=== PATIENT | female | born 1945 | race Caucasian/White ===

== ENCOUNTER 2017-12-11 08:13 | Outpatient (CLI) | payer MEDICARE, OTHER ==
[~2017-12-11 08:13] MED LIST: ATEN100T PO; HYDR12.5 PO; LOSA25TA96 PO; LOVA10TA56 PO
[2017-12-11 09:28] LABS: CLARITY,URINE SLIGHTLY CLOUDY (Clear); COLOR,URINE YELLOW (Yellow); GLUCOSE, URINE NEGATIVE (Neg); KETONES,URINE NEGATIVE (Neg); LEUKOCYTE ESTERASE ,URINE NEGATIVE (Neg); NITRITES, URINE NEGATIVE (Neg); OCCULT BLOOD,URINE NEGATIVE (Neg); PH,URINE 5.5 (4.8-8.0); PROTEIN,URINE NEGATIVE (Neg); UROBILINOGEN,URINE 0.2 E.U/dL (0.2-1.0)
[2017-12-11 09:32] LABS: INR 0.9 INR; PROTHROMBIN TIME 9.8 SECONDS (9.0-12.0)
[2017-12-11 09:33] LABS: UA COLLECTION TYPE VOIDED
[2017-12-11 09:35] LABS: WBC,URINE 0-4 /HPF (0-4)
[2017-12-11 09:36] LABS: RBC,URINE NONE SEEN /HPF (0-2)
[2017-12-11 09:37] LABS: BACTERIA,URINE FEW /HPF (Neg); HYALINE CASTS 0-3 /LPF (NEGATIVE); RENAL CELLS, URINE FEW /HPF; SQUAMOUS EPITHELIAL CELL,UR MANY /LPF (FEW)
[2017-12-11 09:40] LABS: BASOPHILS % (AUTO) 0.5 % (0-1); EOSINOPHILS # (AUTO) 0.4 X10'3 (0-0.9); EOSINOPHILS % (AUTO) 5.4 % (0-6); HEMOGLOBIN 13.5 g/dl (12.0-16.0); LYMPHOCYTES # (AUTO) 2.4 X10'3 (1.1-4.8); LYMPHOCYTES % (AUTO) 28.5 % (21-51); MEAN CORPUSCULAR HEMOGLOBIN 29.7 PG (27.0-31.0); MEAN CORPUSCULAR HGB CONC 34.6 % (33.0-36.5); MEAN CORPUSCULAR VOLUME 85.9 FL (78-98); MEAN PLATELET VOLUME 9.1 FL (7.4-10.4); MONOCYTES # (AUTO) 0.6 X10'3 (0-0.9); MONOCYTES % (AUTO) 7.3 % (2-12); NEUTROPHILS # (AUTO) 4.9 X10'3 (1.8-7.7); NEUTROPHILS % (AUTO) 58.3 % (42-75); PLATELET COUNT 217 X10'3 (140-440); RED BLOOD COUNT 4.55 X10'6 (4.20-5.60); RED CELL DISTRIBUTION WIDTH 15.3 % (11.5-14.5); WHITE BLOOD COUNT 8.3 X10'3 (4.5-11.0)
[2017-12-11 10:03] LABS: ALANINE AMINOTRANSFERASE 26 U/L (12-78); ALBUMIN 3.9 G/DL (3.4-5.0); ALKALINE PHOSPHATASE 69 IU/L (46-116); ANION GAP 7 (8-16); ASPARTATE AMINO TRANSFERASE 20 U/L (10-37); BILIRUBIN,TOTAL 0.5 MG/DL (0.1-1.0); BLOOD UREA NITROGEN 23 MG/DL (7-18); BUN/CREATININE RATIO 19.2 (6.6-38.0); CALCIUM 9.5 MG/DL (8.5-10.1); CHLORIDE 105 MMOL/L (99-107); GLUCOSE 117 MG/DL (70-104); POTASSIUM 3.6 MMOL/L (3.5-5.1); SODIUM 143 MMOL/L (135-145); TOTAL CARBON DIOXIDE 31.4 MMOL/L (24-32); TOTAL PROTEIN 7.8 G/DL (6.4-8.2); eGFR 44 ML/MIN
[2017-12-11 17:50] LABS: HEMOGLOBIN A1C 6.3 % (4.5-6.2)
== END 2017-12-11 23:59 | disposition home or self-care (01) ==
LOC: LAB 08:13
PROVIDERS: ATTEND Specialist
DX: Z01.818 Encounter for other preprocedural examination (principal); Z51.81 Encounter for therapeutic drug level monitoring; N39.0 Urinary tract infection, site not specified; I10 Essential (primary) hypertension
CPT/HCPCS: 36415; 80053; 81001; 83036; 85025; 85610; 87070

== ENCOUNTER 2017-12-25 05:45 | Inpatient (IN) | payer MEDICARE, OTHER ==
[2017-12-25] VITALS (18 sets, daily range): BP systolic 97–123; BP diastolic 47–78
[~2017-12-25] VITALS: Ht 154.9 cm; Wt 70.3 kg
[~2017-12-25 05:45] MED LIST changes: -ATEN100T PO; +DOCUMENT DATE & TIME OF BETA-BLOCKER PO ONE; +METO50TA17 PO; +acetaminophen 325mg tablet PO ONE; +cefazolin/dext.iso 2gm/50ml 50 ML IV ONE; +famotidine 20mg tablet PO ONE; +gabapentin 300mg capsule PO ONE; +oxyCODONE SR 10mg (sust. release) tab PO ONE; +ringers solution, lacted 1,000 ML IV SCH; +tranexamic acid inj. 1,000 MG in normal saline 100ml IV soln 90 ML IV ONE
[2017-12-25] MEDS ORDERED: LIDOcaine 1% (10mg/ml) 2ml vial ONE (06:09)
[2017-12-25] MEDS ORDERED: ROPIVAcaine 0.5% (5mg/ml) 30ml vial ONE (06:50)
[2017-12-25] MEDS ORDERED: bacitracin inj 150,000 UNIT in sodium chloride irrig. sol 3,000 ML IR ONE (07:00)
[2017-12-25] MEDS ORDERED: MORPHINE SULFATE/PF 0.5 MG/ML 10ML AMPUL ONE (07:23)
[2017-12-25] MEDS ORDERED: MIDAZolam 1mg/ml 10ml vial ONE (07:23)
[2017-12-25] MEDS ORDERED: epiNEPHrine 1 mg/ml inj ONE (07:42)
[2017-12-25] MEDS ORDERED: propofol inj 20 ML IV ONE (07:42)
[2017-12-25] MEDS ORDERED: cloNIDine hcl/PF 100mcg/ml inj EP ONE (08:09)
[2017-12-25] MEDS ORDERED: proCHLORperazine 10 MG/2 ml inj IV PRN (08:15)
[2017-12-25] MEDS ORDERED: morphine 2 MG/ML inj. syringe IV PRN ×2 (08:15)
[2017-12-25] MEDS ORDERED: acetaminophen 1,000mg/100ml IV 100 ML IV PRN (08:15)
[2017-12-25] MEDS ORDERED: ondansetron/PF 4mg/2ml inj IV PRN ×2 (08:15→09:45)
[2017-12-25] MEDS ORDERED: ringers solution, lacted 1,000 ML IV SCH (08:15)
[2017-12-25] MEDS ORDERED: meperidine/PF 50mg/ml syringe IV PRN ×3 (08:15)
[2017-12-25] MEDS ORDERED: ePHEDrine 50MG/ML INJ. ONE (09:29)
[2017-12-25] MEDS ORDERED: BUPIVAcaine/PF 2.5 mg/ml (0.25%) 30ml vial ONE (09:29)
[2017-12-25] MEDS ORDERED: dexamethasone sod phosphate 4mg/ml inj. ONE (09:29)
[2017-12-25] MEDS ORDERED: acetaminophen 325mg tablet PO PRN (09:45)
[2017-12-25] MEDS ORDERED: HYDROmorphone 1 mg/ml syringe IV PRN (09:45)
[2017-12-25] MEDS ORDERED: diphenhydrAMINE 25mg capsule PO PRN ×2 (09:45)
[2017-12-25] MEDS ORDERED: magnesium hydroxide 30ml (MOM) UD suspension PO PRN (09:45)
[2017-12-25] MEDS ORDERED: bisacodyl 10mg suppository rectal RC PRN (09:45)
[2017-12-25] MEDS ORDERED: HYDROmorphone inj. 0.5 MG/0.5 ML DISP.SYRIN IV PRN (10:04)
[2017-12-25] MEDS: gabapentin 300mg capsule PO SCH ×2 (12:50→20:03)
[2017-12-25] MEDS: potassium cl 20mEq in 1/2 NS 1,000 ML IV SCH ×2 (12:51→20:03)
[2017-12-25] MEDS: acetaminophen 325mg tablet PO SCH ×2 (14:00→20:04)
[2017-12-25] MEDS: metoprolol tartrate 50mg tablet PO SCH (16:43)
[2017-12-25] MEDS: cefazolin 1gm/NS 100mL 100 ML IV SCH (16:46)
[2017-12-25] MEDS: lactobacillus rhamnosus 10,000 MMU CELLS/CAPSULE PO SCH (17:21)
[2017-12-25] MEDS: atorvastatin 10mg tablet PO SCH (20:03)
[2017-12-25] MEDS: sennosides 8.6mg tablet PO SCH (20:04)
[2017-12-25] MEDS: celeCOXIB 100mg capsule PO SCH (20:05)
[2017-12-25] MEDS: ascorbic acid 500mg tablet PO SCH (20:05)
[2017-12-26] VITALS (8 sets, daily range): BP systolic 92–112; BP diastolic 38–60
[2017-12-26] MEDS: cefazolin 1gm/NS 100mL 100 ML IV SCH (01:14)
[2017-12-26] MEDS: acetaminophen 325mg tablet PO SCH ×4 (01:15→20:15)
[2017-12-26] MEDS: potassium cl 20mEq in 1/2 NS 1,000 ML IV SCH ×2 (04:28→20:14)
[2017-12-26] MEDS: oxyCODONE IR 5mg (immed. release) tablet PO PRN ×4 (05:04→22:48)
[2017-12-26 06:00] LABS: BASOPHILS % (AUTO) 0.2 % (0-1); EOSINOPHILS # (AUTO) 0.1 X10'3 (0-0.9); EOSINOPHILS % (AUTO) 1.1 % (0-6); HEMATOCRIT 31.2 % (35.0-45.0); HEMOGLOBIN 10.6 g/dl (12.0-16.0); LYMPHOCYTES # (AUTO) 1.5 X10'3 (1.1-4.8); MEAN CORPUSCULAR HGB CONC 34.1 % (33.0-36.5); MEAN CORPUSCULAR VOLUME 87.8 FL (78-98); MEAN PLATELET VOLUME 8.9 FL (7.4-10.4); MONOCYTES # (AUTO) 0.8 X10'3 (0-0.9); MONOCYTES % (AUTO) 6.8 % (2-12); NEUTROPHILS # (AUTO) 9.2 X10'3 (1.8-7.7); NEUTROPHILS % (AUTO) 78.9 % (42-75); PLATELET COUNT 171 X10'3 (140-440); RED BLOOD COUNT 3.55 X10'6 (4.20-5.60); RED CELL DISTRIBUTION WIDTH 15.5 % (11.5-14.5); WHITE BLOOD COUNT 11.6 X10'3 (4.5-11.0)
[2017-12-26 06:09] LABS: INR 1.4 INR; PROTHROMBIN TIME 14.5 SECONDS (9.0-12.0)
[2017-12-26 06:27] LABS: ANION GAP 7 (8-16); CHLORIDE 106 MMOL/L (99-107); POTASSIUM 4.2 MMOL/L (3.5-5.1); SODIUM 139 MMOL/L (135-145); TOTAL CARBON DIOXIDE 25.6 MMOL/L (24-32)
[2017-12-26] MEDS: HYDROchlorothiazide 12.5mg capsule PO SCH (08:00)
[2017-12-26] MEDS: lactobacillus rhamnosus 10,000 MMU CELLS/CAPSULE PO SCH ×2 (08:49→17:15)
[2017-12-26] MEDS: multivitamins, therapeutics tablet PO SCH (08:50)
[2017-12-26] MEDS: losartan 25mg tablet PO SCH (08:50)
[2017-12-26] MEDS: celeCOXIB 100mg capsule PO SCH ×2 (08:50→20:15)
[2017-12-26] MEDS: gabapentin 300mg capsule PO SCH ×3 (08:50→20:15)
[2017-12-26] MEDS: ascorbic acid 500mg tablet PO SCH ×2 (08:51→20:15)
[2017-12-26] MEDS ORDERED: warfarin 5mg tablet PO ONE (10:00)
[2017-12-26] MEDS: metoprolol tartrate 50mg tablet PO SCH (17:15)
[2017-12-26] MEDS: sennosides 8.6mg tablet PO SCH (20:15)
[2017-12-26] MEDS: atorvastatin 10mg tablet PO SCH (20:15)
[2017-12-27] MEDS: acetaminophen 325mg tablet PO SCH ×2 (02:00→08:44)
[2017-12-27] MEDS: oxyCODONE IR 5mg (immed. release) tablet PO PRN ×4 (04:11→22:37)
[2017-12-27 05:50] LABS: BASOPHILS # (AUTO) 0.1 X10'3 (0-0.2); BASOPHILS % (AUTO) 1.3 % (0-1); EOSINOPHILS # (AUTO) 0.5 X10'3 (0-0.9); HEMOGLOBIN 10.7 g/dl (12.0-16.0); LYMPHOCYTES # (AUTO) 2.7 X10'3 (1.1-4.8); LYMPHOCYTES % (AUTO) 26.2 % (21-51); MEAN CORPUSCULAR HEMOGLOBIN 30.1 PG (27.0-31.0); MEAN CORPUSCULAR HGB CONC 34.3 % (33.0-36.5); MEAN CORPUSCULAR VOLUME 87.5 FL (78-98); MEAN PLATELET VOLUME 9.5 FL (7.4-10.4); MONOCYTES # (AUTO) 0.6 X10'3 (0-0.9); NEUTROPHILS # (AUTO) 6.4 X10'3 (1.8-7.7); NEUTROPHILS % (AUTO) 61.5 % (42-75); PLATELET COUNT 134 X10'3 (140-440); RED BLOOD COUNT 3.55 X10'6 (4.20-5.60); RED CELL DISTRIBUTION WIDTH 15.5 % (11.5-14.5); WHITE BLOOD COUNT 10.4 X10'3 (4.5-11.0)
[2017-12-27 06:00] LABS: INR 1.6 INR; PROTHROMBIN TIME 16.3 SECONDS (9.0-12.0)
[2017-12-27 07:00] VITALS: BP 95/47
[2017-12-27] MEDS: losartan 25mg tablet PO SCH (08:00)
[2017-12-27] MEDS: HYDROchlorothiazide 12.5mg capsule PO SCH (08:00)
[2017-12-27] MEDS: celeCOXIB 100mg capsule PO SCH ×2 (08:43→20:14)
[2017-12-27] MEDS: gabapentin 300mg capsule PO SCH ×3 (08:43→20:14)
[2017-12-27] MEDS: ascorbic acid 500mg tablet PO SCH ×2 (08:44→20:14)
[2017-12-27] MEDS: multivitamins, therapeutics tablet PO SCH (08:44)
[2017-12-27] MEDS: lactobacillus rhamnosus 10,000 MMU CELLS/CAPSULE PO SCH ×2 (08:44→17:17)
[2017-12-27] MEDS ORDERED: acetaminophen 325mg tablet PO PRN (09:45)
[2017-12-27 10:00] VITALS: BP 111/45
[2017-12-27] MEDS ORDERED: warfarin 3mg tablet PO ONE (10:00)
[2017-12-27] MEDS: metoprolol tartrate 50mg tablet PO SCH (17:17)
[2017-12-27 18:00] VITALS: BP 131/52
[2017-12-27] MEDS: atorvastatin 10mg tablet PO SCH (20:14)
[2017-12-27] MEDS: sennosides 8.6mg tablet PO SCH (20:14)
[2017-12-27 22:00] VITALS: BP 122/56
[2017-12-28 05:00] VITALS: BP 122/55
[2017-12-28 05:17] LABS: BASOPHILS % (AUTO) 0.5 % (0-1); EOSINOPHILS # (AUTO) 0.5 X10'3 (0-0.9); EOSINOPHILS % (AUTO) 5.3 % (0-6); HEMATOCRIT 31.7 % (35.0-45.0); HEMOGLOBIN 10.8 g/dl (12.0-16.0); LYMPHOCYTES # (AUTO) 2.3 X10'3 (1.1-4.8); LYMPHOCYTES % (AUTO) 26.8 % (21-51); MEAN CORPUSCULAR HEMOGLOBIN 29.8 PG (27.0-31.0); MEAN CORPUSCULAR HGB CONC 34.2 % (33.0-36.5); MEAN CORPUSCULAR VOLUME 87.3 FL (78-98); MEAN PLATELET VOLUME 9.1 FL (7.4-10.4); MONOCYTES # (AUTO) 0.8 X10'3 (0-0.9); MONOCYTES % (AUTO) 9.9 % (2-12); NEUTROPHILS # (AUTO) 4.9 X10'3 (1.8-7.7); NEUTROPHILS % (AUTO) 57.5 % (42-75); PLATELET COUNT 181 X10'3 (140-440); RED BLOOD COUNT 3.64 X10'6 (4.20-5.60); RED CELL DISTRIBUTION WIDTH 15.7 % (11.5-14.5); WHITE BLOOD COUNT 8.5 X10'3 (4.5-11.0)
[2017-12-28 05:42] LABS: INR 1.5 INR
[2017-12-28] MEDS: multivitamins, therapeutics tablet PO SCH (07:36)
[2017-12-28] MEDS: HYDROchlorothiazide 12.5mg capsule PO SCH (07:36)
[2017-12-28] MEDS: gabapentin 300mg capsule PO SCH ×2 (07:36→13:14)
[2017-12-28] MEDS: celeCOXIB 100mg capsule PO SCH (07:36)
[2017-12-28] MEDS: ascorbic acid 500mg tablet PO SCH (07:36)
[2017-12-28] MEDS: oxyCODONE IR 5mg (immed. release) tablet PO PRN ×2 (07:36→13:23)
[2017-12-28] MEDS: lactobacillus rhamnosus 10,000 MMU CELLS/CAPSULE PO SCH (07:36)
[2017-12-28] MEDS: losartan 25mg tablet PO SCH (08:00)
[2017-12-28] MEDS ORDERED: warfarin 4mg tablet PO ONE (10:00)
== END 2017-12-28 13:35 | DRG 470 ==
LOC: PAS IN 05:45 → EDSTATUS 07:30 → ORTHO 4S 11:15
PROVIDERS: ADMIT Specialist; ATTEND Specialist
PROC: 3E0T3BZ Introduction of Anesthetic Agent into Peripheral Nerves and Plexi, Percutaneous Approach (ICD-10-PCS; 2017-12-25)
PROC: 0SRC0J9 Replacement of Right Knee Joint with Synthetic Substitute, Cemented, Open Approach (ICD-10-PCS; principal; 2017-12-25 07:18)
DX: M17.11 Unilateral primary osteoarthritis, right knee (principal); D62 Acute posthemorrhagic anemia; Z96.652 Presence of left artificial knee joint; E78.5 Hyperlipidemia, unspecified; I10 Essential (primary) hypertension; M94.261 Chondromalacia, right knee; Z90.710 Acquired absence of both cervix and uterus; Z79.899 Other long term (current) drug therapy
CPT/HCPCS: 36415; 73560; 80051; 85025; 85610; 97110; 97116; 97162; 97530; A6449; A6455; A7000; C1713; C1758; C1776; J0171; J0690; J0735; J1100; J1170; J2250; J2274; J2405; J2704; J2795; J3490; J7030; J7120

== ENCOUNTER 2019-01-25 13:05 | Emergency (ER) | payer MEDICARE, OTHER ==
[~2019-01-25] VITALS: Ht 154.9 cm; Wt 71.5 kg
[~2019-01-25 13:05] MED LIST changes: -DOCUMENT DATE & TIME OF BETA-BLOCKER PO ONE; -acetaminophen 325mg tablet PO ONE; -cefazolin/dext.iso 2gm/50ml 50 ML IV ONE; -famotidine 20mg tablet PO ONE; -gabapentin 300mg capsule PO ONE; -oxyCODONE SR 10mg (sust. release) tab PO ONE; -ringers solution, lacted 1,000 ML IV SCH; -tranexamic acid inj. 1,000 MG in normal saline 100ml IV soln 90 ML IV ONE
[2019-01-25 15:54] VITALS: BP 179/82
== END 2019-01-25 15:55 | disposition home or self-care (01) ==
LOC: ER 13:05
DX: I10 Essential (primary) hypertension (principal); R11.0 Nausea
CPT/HCPCS: 93005; 99284

== ENCOUNTER 2023-02-28 14:31 | Emergency (ER) | payer MEDICARE, OTHER ==
[~2023-02-28] VITALS: Ht 157.5 cm; Wt 69.0 kg
[2023-02-28 14:40] VITALS: BP 205/119
== END 2023-02-28 16:18 | disposition home or self-care (01) ==
LOC: ER 14:31
DX: R04.0 Epistaxis (principal); I10 Essential (primary) hypertension; E78.00 Pure hypercholesterolemia, unspecified
CPT/HCPCS: 99281

== ENCOUNTER 2023-03-13 10:47 | Emergency (ER) | payer MEDICARE ==
[~2023-03-13] VITALS: Ht 154.9 cm; Wt 69.5 kg
[2023-03-13] MEDS ORDERED: cloNIDine 0.1 mg tablet PO ONE (11:25)
[2023-03-13] MEDS ORDERED: oxymetazoline 15 ML nasal spray NS ONE (11:25)
[2023-03-13] MEDS ORDERED: LIDOcaine 1% W/epiNEPHrine 1:100,000 20ml vial IJ ONE (11:25)
[2023-03-13] MEDS ORDERED: tranexamic acid 100mg/ml inj. TP ONE (11:25)
[2023-03-13] MEDS ORDERED: LidoCAINE 2% Topical Jelly 11mL syringe MM ONE (11:25)
[2023-03-13 12:42] VITALS: BP 177/63
== END 2023-03-13 12:44 | disposition home or self-care (01) ==
LOC: ER 10:47
DX: R04.0 Epistaxis (principal); I10 Essential (primary) hypertension; E78.00 Pure hypercholesterolemia, unspecified; Z79.899 Other long term (current) drug therapy
CPT/HCPCS: 30901; 99284

== ENCOUNTER 2023-03-16 08:41 | Emergency (ER) | payer MEDICARE ==
[~2023-03-16] VITALS: Ht 157.5 cm; Wt 69.8 kg
[2023-03-16 08:50] VITALS: BP 154/73
== END 2023-03-16 09:43 | disposition home or self-care (01) ==
LOC: ER 08:41
DX: R04.0 Epistaxis (principal); E78.00 Pure hypercholesterolemia, unspecified; I10 Essential (primary) hypertension; Z79.899 Other long term (current) drug therapy
CPT/HCPCS: 99281